=== PATIENT | male | born 1970 | race Caucasian/White ===

== ENCOUNTER 2022-10-02 14:47 | Emergency (ER) | payer MEDICAID ==
[2022-10-02 16:01] LABS: ESTIMATED GFR 60 mL/min (>60)
[2022-10-02] MEDS ORDERED: OLANZapine 5 MG Tab PO SCH (21:00)
[2022-10-02] MEDS ORDERED: Benztropine 1 MG Tab PO SCH (21:00)
== END 2022-10-03 07:16 ==
LOC: JP.ED 14:47
DX: F20.1 Disorganized schizophrenia (principal); Z20.822 Contact with and (suspected) exposure to COVID-19
CPT/HCPCS: 36415; 80053; 80305; 81001; 85025; 87635; 99285; A9270; U0002